=== PATIENT | female | born 1975 | race Caucasian/White ===

== ENCOUNTER 2022-05-30 19:45 | Emergency (ER) | payer SELFPAY ==
[2022-05-30] MEDS ORDERED: Ketorolac Tromethamine 30 MG/ML VIAL ONE (21:36)
== END 2022-05-30 22:05 | disposition home or self-care (01) ==
LOC: ERS 19:45
DX: L03.111 Cellulitis of right axilla (principal); R59.0 Localized enlarged lymph nodes; Z87.19 Personal history of other diseases of the digestive system; Z79.899 Other long term (current) drug therapy
CPT/HCPCS: 96372; 99283; J1885

== ENCOUNTER 2022-06-05 20:15 | Emergency (ER) | payer SELFPAY ==
[2022-06-05] MEDS ORDERED: Ondansetron PF 4 MG/2 ML Vial ONE (20:54)
[2022-06-05] MEDS ORDERED: Ondansetron ODT 4 MG TAB ONE (20:55)
[2022-06-05] MEDS ORDERED: Ketorolac Tromethamine 30 MG/ML VIAL ONE (21:02)
[2022-06-05] MEDS ORDERED: Doxycycline 100 MG CAP PO SCH (21:15)
== END 2022-06-05 21:33 | disposition home or self-care (01) ==
LOC: ERS 20:15
DX: I89.1 Lymphangitis (principal)
CPT/HCPCS: 96372; 99283; J1885; J2405; Q0162

== ENCOUNTER 2022-06-08 09:06 | Emergency (ER) | payer SELFPAY ==
[2022-06-08] MEDS ORDERED: Ondansetron PF 4 MG/2 ML Vial ONE (09:41)
[2022-06-08] MEDS ORDERED: Ketorolac Tromethamine 30 MG/ML VIAL ONE (09:41)
[2022-06-08 09:43] LABS: #Eosinphils 0.1 thou/uL (0.0-0.7); #Lymphocytes 1.5 thou/uL (1.20-3.40); #Monocytes 0.5 thou/uL (0.11-0.59); #Neutrophils 3.8 thou/uL (1.40-6.50); %Basophils 0.7 % (0.0-1.0); %Lymphocytes 25.4 % (21.0-51.0); %Monocytes 8.5 % (0.0-10.0); %Neutrophils 64.4 % (42.0-75.0); Hemoglobin 12.9 g/dL (12.0-16.0); Mean Corpuscular HGB CONC 32.4 g/dL (32.0-36.0); Mean Corpuscular Volume 92.7 fL (78.0-98.0); Mean Platelet Volume 9.6 fL (7.4-10.4); Platelet Count 216 thou/uL (130-400); RBC Distribution Width 12.6 % (11.5-14.5); Red Blood Cell (RBC) Count 4.28 mill/uL (4.20-5.40); White Blood Cell (WBC) Count 5.8 thou/uL (4.8-10.8)
[2022-06-08 09:57] LABS: Bilirubin Negative (Negative); Blood, Urine Negative (Negative); Clarity Clear (Clear); Glucose, Urine (Dipstick) Normal (Negative); Ketone, Urine Negative (Negative); Leukocyte Negative Leu/uL (Negative); Nitrite Negative (Negative); Protein, Urine (Dipstick) Negative (Neg-Trace); Specific Gravity, Urine 1.015 (1.002-1.036); Urobilinogen Normal mg/dL (Less than 2); pH, Urine 6.5 (5.0-9.0)
[2022-06-08 10:21] LABS: ALT (SGPT) 27 U/L (8-55); AST (SGOT) 14 U/L (5-34); Alkaline Phosphatase 86 U/L (40-110); Anion Gap 14 mmol/L (10-20); BUN (Urea Nitrogen) 10 mg/dL (7.0-18.7); Bilirubin, Total 0.3 mg/dL (0.2-1.2); Calc. Creatinine Clearance 0 mL/min (70-130); Calcium 9.4 mg/dL (7.8-10.44); Carbon Dioxide 27 mmol/L (22-29); Chloride 106 mmol/L (98-107); Estimated GFR 107; Globulin 2.8 g/dL (2.4-3.5); Glucose 88 mg/dL (70-105); Lipase 28 U/L (8-78); Magnesium 2.1 mg/dL (1.6-2.6); Potassium 3.8 mmol/L (3.5-5.1); Protein, Total 6.8 g/dL (6.0-8.3); Sodium 143 mmol/L (136-145)
[2022-06-08] MEDS ORDERED: Acetaminophen 500 MG TAB ONE (11:19)
[2022-06-08] MEDS ORDERED: Ondansetron ODT 4 MG TAB ONE (11:44)
== END 2022-06-08 12:27 | disposition home or self-care (01) ==
LOC: ERS 09:06
DX: K74.60 Unspecified cirrhosis of liver (principal); R59.0 Localized enlarged lymph nodes; F17.290 Nicotine dependence, other tobacco product, uncomplicated; Z79.899 Other long term (current) drug therapy
CPT/HCPCS: 36415; 71045; 76705; 76999; 80053; 81003; 83605; 83690; 83735; 84484; 85025; 93005; 94760; 96361; 96374; 96375; J1885; J2405; Q0162

== ENCOUNTER 2022-06-23 12:49 | Emergency (ER) | payer SELFPAY ==
[~2022-06-23 12:49] MED LIST: Iopamidol-370 76% 500 ML 1 ML ONE
[2022-06-23 13:48] LABS: #Eosinphils 0.1 thou/uL (0.0-0.7); #Lymphocytes 1.6 thou/uL (1.20-3.40); #Monocytes 0.5 thou/uL (0.11-0.59); #Neutrophils 3.6 thou/uL (1.40-6.50); %Basophils 0.7 % (0.0-1.0); %Eosinophils 1.4 % (0.0-10.0); %Lymphocytes 27.7 % (21.0-51.0); %Monocytes 8.6 % (0.0-10.0); %Neutrophils 61.5 % (42.0-75.0); Hemoglobin 12.9 g/dL (12.0-16.0); Mean Corpuscular HGB CONC 33.5 g/dL (32.0-36.0); Mean Corpuscular Hemoglobin 30.9 pg (27.0-31.0); Mean Corpuscular Volume 92.2 fL (78.0-98.0); Mean Platelet Volume 9.4 fL (7.4-10.4); Platelet Count 198 thou/uL (130-400); RBC Distribution Width 12.5 % (11.5-14.5); Red Blood Cell (RBC) Count 4.19 mill/uL (4.20-5.40); White Blood Cell (WBC) Count 5.9 thou/uL (4.8-10.8)
[2022-06-23 14:11] LABS: ALT (SGPT) 18 U/L (8-55); AST (SGOT) 15 U/L (5-34); Albumin 4.1 g/dL (3.5-5.0); Alkaline Phosphatase 82 U/L (40-110); Anion Gap 12 mmol/L (10-20); BUN (Urea Nitrogen) 14 mg/dL (7.0-18.7); Bilirubin, Total 0.3 mg/dL (0.2-1.2); Calc. Creatinine Clearance 0 mL/min (70-130); Calcium 9.5 mg/dL (7.8-10.44); Carbon Dioxide 27 mmol/L (22-29); Chloride 105 mmol/L (98-107); Estimated GFR 103; Globulin 2.7 g/dL (2.4-3.5); Glucose 94 mg/dL (70-105); Lipase 25 U/L (8-78); Protein, Total 6.8 g/dL (6.0-8.3); Sodium 140 mmol/L (136-145)
[2022-06-23 14:12] LABS: BHCG - Serum Negative (NEGATIVE); Pregs Control Background? CLEAR/WHITE (CLR/WHITE); Pregs Control Bar Appear? YES (CONTROL BAR)
[2022-06-23] MEDS ORDERED: Morphine 4 MG/ML VIAL ONE (14:25)
[2022-06-23] MEDS ORDERED: Ondansetron PF 4 MG/2 ML Vial ONE (14:25)
[2022-06-23 14:38] LABS: Bilirubin Negative (Negative); Blood, Urine Negative (Negative); Clarity Clear (Clear); Glucose, Urine (Dipstick) Normal (Negative); Ketone, Urine Negative (Negative); Leukocyte Negative Leu/uL (Negative); Nitrite Negative (Negative); Protein, Urine (Dipstick) Negative (Neg-Trace); Specific Gravity, Urine 1.007 (1.002-1.036); Urobilinogen Normal mg/dL (Less than 2); pH, Urine 6.5 (5.0-9.0)
== END 2022-06-23 16:08 | disposition home or self-care (01) ==
LOC: ERS 12:49
DX: R10.31 Right lower quadrant pain (principal); R10.32 Left lower quadrant pain; R10.11 Right upper quadrant pain; Z79.899 Other long term (current) drug therapy
CPT/HCPCS: 36415; 74177; 80053; 81003; 82274; 83690; 84703; 85025; 96361; 96374; 96375; J2270; J2405; Q9967

== ENCOUNTER 2022-06-29 08:19 | Emergency (ER) | payer SELFPAY | END 2022-06-29 10:21 | disposition home or self-care (01) | LOC: ERS 08:19 | DX: R59.0 Localized enlarged lymph nodes (principal); M79.89 Other specified soft tissue disorders; K74.60 Unspecified cirrhosis of liver; Z79.899 Other long term (current) drug therapy | CPT/HCPCS: 99281 ==